=== PATIENT | female | born 2000 | race African-American/Black ===

== ENCOUNTER 2018-07-10 10:45 | Emergency (ER) | payer SELFPAY ==
[2018-07-10] MEDS ORDERED: Ibuprofen 200 MG TAB ONE (11:34)
== END 2018-07-10 11:40 | disposition home or self-care (01) ==
LOC: NAV ERS 10:45
DX: S02.5XXA Fracture of tooth (traumatic), initial encounter for closed fracture (principal); V00.131A Fall from skateboard, initial encounter
CPT/HCPCS: 99283